=== PATIENT | female | born 1995 | race Hispanic/Latino ===

== ENCOUNTER 2017-07-07 05:35 | Emergency (ER) | payer BC ==
[2017-07-07 06:09] LABS: RAPID GROUP A STREP NEGATIVE (NEGATIVE)
[2017-07-07] MEDS ORDERED: ACETAMINOPHEN 325 MG TAB ONE (06:30)
== END 2017-07-07 06:40 | disposition home or self-care (01) ==
LOC: EDH 05:35
DX: J10.1 Influenza due to other identified influenza virus with other respiratory manifestations (principal); M79.1 Myalgia
CPT/HCPCS: 87804; 87880

== ENCOUNTER 2017-07-11 22:20 | Emergency (ER) | payer BC | END 2017-07-12 00:35 | disposition home or self-care (01) | LOC: EDH 22:20 | DX: J10.1 Influenza due to other identified influenza virus with other respiratory manifestations (principal); R05 Cough ==

== ENCOUNTER 2017-09-05 01:23 | Emergency (ER) | payer BC ==
[2017-09-05 01:53] LABS: BASOPHILS % (AUTO) 0.3 % (0.0-5.0); EOSINOPHILS % (AUTO) 0.2 % (0.0-8.0); HEMATOCRIT 40.8 % (36-48); LYMPHOCYTES % (AUTO) 19.6 % (21.0-51.0); MEAN CORPUSCULAR HEMOGLOBIN 27.6 pg (27.0-33.0); MEAN CORPUSCULAR VOLUME 83.7 fL (80-100); NEUTROPHILS % (AUTO) 72.9 % (40.0-77.0); PLATELET COUNT (AUTO) 274 K/uL (130-400); RED BLOOD CELL COUNT(AUTO) 4.88 MIL/uL (4.00-5.50); RED CELL DISTRIBUTION WIDTH 16.7 % (11.0-15.5)
[2017-09-05 01:57] LABS: APPEARANCE,URINE Cloudy (CLEAR); BILIRUBIN,URINE Negative (NEGATIVE); COLOR,URINE Yellow (YELLOW); GLUCOSE, URINE (UA) Negative (NEGATIVE); KETONES,URINE Negative (NEGATIVE); LEUKOCYTE ESTERASE ,URINE Large (NEGATIVE); NITRATE,URINE Negative (NEGATIVE); OCCULT BLOOD,URINE Trace (NEGATIVE); PH,URINE 7.5 (5.0-8.0); PROTEIN,URINE POS 1+ (NEGATIVE)
[2017-09-05 02:03] LABS: CREATININE 0.7 mg/dL (0.5-1.5); POTASSIUM 3.6 mmol/L (3.5-5.1)
[2017-09-05 02:04] LABS: HCG,QUAL RESULT NEGATIVE (NEGATIVE)
[2017-09-05 02:11] LABS: ALBUMIN 4.1 g/dL (3.5-5.0); BILIRUBIN,TOTAL 0.4 mg/dL (0.2-1.0); TOTAL PROTEIN, SERUM 8.2 g/dL (6.0-8.3)
[2017-09-05 02:21] LABS: BACTERIA,URINE Few /HPF (None Seen); RBC,URINE None Seen /HPF (0-1); WBC,URINE 51-100 /HPF (0-1)
[2017-09-05] MEDS ORDERED: SODIUM CHLORIDE 0.9% 1000ML 1,000 ML IV ONE (02:46)
[2017-09-05] MEDS ORDERED: CEFTRIAXONE SODIUM 1 GM ONE (02:47)
== END 2017-09-05 03:58 | disposition home or self-care (01) ==
LOC: EDH 01:23
DX: N10 Acute pyelonephritis (principal)
CPT/HCPCS: 36415; 80053; 81001; 81025; 85025; 87088; 87186; 96361; 96374; 99284; J0696; J7030

== ENCOUNTER 2017-09-20 09:43 | Emergency (ER) | payer BC | END 2017-09-20 10:26 | disposition home or self-care (01) | LOC: EDH 09:43 | DX: L02.416 Cutaneous abscess of left lower limb (principal) | CPT/HCPCS: 10060 ==

== ENCOUNTER 2022-11-25 02:00 | Emergency (ER) | payer BC ==
[~2022-11-25] VITALS: Ht 157.5 cm; Wt 69.9 kg
[2022-11-25] MEDS ORDERED: L.E.T. GEL 3ML SYG TP ONE ×2 (04:39→05:00)
[2022-11-25] MEDS ORDERED: TETANUS/DIPHTHERIA TOXOID [ADULT] 0.5 ML VIAL IM ONE (04:40)
[2022-11-25] MEDS ORDERED: CEPHALEXIN 500 MG CAPSULE ONE (04:42)
[2022-11-25] MEDS ORDERED: CEPH500B PO (04:47)
[2022-11-25] MEDS ORDERED: DIPH,PERTUSS(ACELL),TET VAC/PF 0.5 ML VIAL IM ONE (05:00)
[2022-11-25] MEDS ORDERED: CEPHALEXIN 500 MG CAPSULE PO ONE (05:00)
[2022-11-25 05:05] VITALS: BP 120/72
== END 2022-11-25 05:22 | disposition home or self-care (01) ==
LOC: EDH 02:00
DX: S01.01XA Laceration without foreign body of scalp, initial encounter (principal); W18.39XA Other fall on same level, initial encounter; Y93.89 Activity, other specified; Y92.89 Other specified places as the place of occurrence of the external cause; Y99.8 Other external cause status
CPT/HCPCS: 70450; 72125; 81025; 90471; 90714